=== PATIENT | male | born 1955 ===

== ENCOUNTER 2021-07-04 09:04 | Day surgery (SDC) | payer OTHER ==
[~2021-07-04] VITALS: Ht 172.7 cm; Wt 73.2 kg
== END 2021-07-04 10:20 | disposition home or self-care (01) ==
LOC: ORSCSDS 09:04
PROVIDERS: Surgery
PROC: 0DJD8ZZ Inspection of Lower Intestinal Tract, Via Natural or Artificial Opening Endoscopic (ICD-10-PCS; principal; 2021-07-04 09:45)
DX: Z12.11 Encounter for screening for malignant neoplasm of colon (principal); Z80.0 Family history of malignant neoplasm of digestive organs; K21.9 Gastro-esophageal reflux disease without esophagitis; Z79.899 Other long term (current) drug therapy
CPT/HCPCS: J2704; J7120